=== PATIENT | female | born 1990 | race Caucasian/White ===

== ENCOUNTER 2016-08-22 13:05 | Outpatient (CLI) | payer OTHER ==
[~2016-08-22 13:05] MED LIST: NORCO 5-325 TA1 EACH PO
[2016-08-22 13:47] LABS: HEMOGLOBIN 11.4 gm/dl (12.3-15.3); RED BLOOD COUNT 4.21 M/UL (4.00-5.10); WHITE BLOOD COUNT 10.1 K/UL (4.5-11.0)
== END 2016-08-22 14:01 | disposition home or self-care (01) ==
LOC: GENOP 13:05
PROVIDERS: Obstetrics & Gynecology
DX: Z01.812 Encounter for preprocedural laboratory examination (principal); O34.219 Maternal care for unspecified type scar from previous cesarean delivery; Z3A.00 Weeks of gestation of pregnancy not specified
CPT/HCPCS: 36415; 81001; 85025; J7120

== ENCOUNTER 2016-08-23 05:30 | Inpatient (IN) | payer OTHER ==
[2016-08-24 03:24] LABS: HEMOGLOBIN 9.9 gm/dl (12.3-15.3)
[2016-08-25] MEDS ORDERED: IBUPROFEN600 MG PO (14:13)
[2016-08-25] MEDS ORDERED: DOCUSATE SODIU100 M1 PO (14:14)
== END 2016-08-25 11:55 | disposition home or self-care (01) | DRG 766 ==
LOC: OB 05:30
PROVIDERS: ADMIT Obstetrics & Gynecology
PROC: 10D00Z1 Extraction of Products of Conception, Low, Open Approach (ICD-10-PCS; principal; 2016-08-23 07:30)
DX: O34.211 Maternal care for low transverse scar from previous cesarean delivery (principal); O99.214 Obesity complicating childbirth; Z3A.40 40 weeks gestation of pregnancy; Z37.0 Single live birth; Z80.9 Family history of malignant neoplasm, unspecified; Z83.3 Family history of diabetes mellitus; Z82.49 Family history of ischemic heart disease and other diseases of the circulatory system; Z83.49 Family history of other endocrine, nutritional and metabolic diseases; Z28.21 Immunization not carried out because of patient refusal
CPT/HCPCS: 36415; 81001; 82800; 85014; 85018; 85025; C9113; J0690; J1200; J1885; J2274; J2590; J2765; J3010; J3430; J7120